=== PATIENT | female | born 1950 | race Caucasian/White ===

== ENCOUNTER 2019-01-26 13:16 | Inpatient (IN) ==
[2019-01-26] MEDS ORDERED: Lytes/Yerba Santa 60 APPL BTL MM PRN (15:37)
[2019-01-26] MEDS ORDERED: MICONAZOLE NITRATE 150 APPL TUBE TP PRN (15:45)
[2019-01-26] MEDS: GABAPENTIN 400 MG CAPSULE PO SCH (16:41)
[2019-01-26] MEDS ORDERED: DOCUSATE SODIUM 100 MG CAPSULE PO SCH (21:00)
[2019-01-26] MEDS ORDERED: GABAPENTIN 400 MG CAPSULE PO SCH (21:00)
[2019-01-26] MEDS: APIXABAN 5 MG TABLET PO SCH (21:54)
[2019-01-27] MEDS: PANTOPRAZOLE SODIUM 20 MG TABLET.DR PO SCH (08:03)
[2019-01-27] MEDS: GABAPENTIN 400 MG CAPSULE PO SCH ×3 (08:03→20:21)
[2019-01-27] MEDS: APIXABAN 5 MG TABLET PO SCH ×2 (08:03→20:20)
[2019-01-27] MEDS: amLODIPine BESYLATE 5 MG TABLET PO SCH (08:04)
[2019-01-27] MEDS: PROCHLORPERAZINE MALEATE 10 MG TABLET PO PRN ×2 (08:13→17:08)
[2019-01-27] MEDS ORDERED: LISINOPRIL 20 MG TABLET PO SCH (09:00)
[2019-01-27] MEDS: oxyCODONE HCL 5 MG TABLET PO PRN ×3 (11:34→20:31)
--- NOTE | 2019-01-27 13:20 | HP ---
Chief Complaint - Chief Complaint Date of Service: 01/26/19 Time of Service: 18:45 Chief Complaint: terminal illness, multiple myeloma, History of Present Illness: Marley ortiz is a 68-year-old female well-known to me who has known mul tiple myeloma with diffuse metastasis. She is on hospice and has been cared for by a son who has taken good care of her but had to go out of town for the weekend. She has another son who came to stay with her but is an alcoholic and is not taking care of her at all. The hospice nurse felt that she was in an unsafe situation and should be admitted to respite care until the responsible son could return home. She is admitted stable and with pain fairly well controlled. She takes a lot of narcotic in order to function. She is sad about her terminal illness and irresponsible son. She has had breast cancer and kidney cancer in the past and she has been cured of both of those. She was treating the myeloma for about 9 months but was getting sicker each time she received chemotherapy and decided to stop it and just let the disease take its course. She has been on hospice for 2 or 3 months now. Medical History (Updated 12/08/18 @ 10:57 by Oliverio Baldwin DO) Hypotension (Acute) Bilateral senile cataracts (Chronic) Acute pulmonary embolism with acute cor pulmonale (Acute) Carpal tunnel syndrome of right wrist (Chronic) Hand pain (Chronic) Multiple myeloma in remission (Suspected) MGUS in remission. Worsening body fluid retention (Chronic) CHF (congestive heart failure) (Chronic) COPD (chronic obstructive pulmonary disease) (Chronic) Hypoxemia (Acute) O2 sat on room air @ 86 % here in the office today. 92% on 1 L NC 02. Multiple myeloma without remission (Acute) C/o of a lot of joint pain. Venous stasis ulcer of both lower extremities without varicose veins (Chronic) Bilateral edema of lower extremity (Chronic) Chemotherapy follow-up examination (Chronic) Thrombocytopenia due to drugs (Acute) Paresthesia of hand, bilateral (Acute) Leg weakness, bilateral (Chronic) Primary cancer of bone marrow (Acute) Chronic pain syndrome (Acute) Bursitis of right shoulder (Acute) Breast cancer Onset Date: ~1994 Right Breast- tx'd w/ radiation & tamoxifen Dermatitis Onset Date: ~03/18/13 Glucose intolerance (impaired glucose tolerance) Onset Date: ~07/19/15 Malignant neoplasm of kidney, except pelvis Onset Date: Unknown Urinary incontinence Onset Date: ~12/20/13 Anemia Onset Date: ~02/08/15 HTN (hypertension) Onset Date: ~03/18/11 DEYSI (obstructive sleep apnea) Onset Date: ~04/14/13 AHI 32, REM AHI 62, lowest O2 sat 72%, [facility] Sleep Lab 03/01/2013 Vitamin D deficiency Onset Date: ~12/19/13 Surgical History: Surgical History (Updated 01/11/18 @ 11:44 by Krysta Devine CMA) History of kidney surgery Onset Date: Unknown Left artery arteriogram w/ embolizatoin History of nephrectomy Onset Date: ~12/31/11 UI; Robotic Heminephrectomy Hx of section Onset Date: ~1974 Hx of cholecystectomy Onset Date: ~06/17/11 UI Hx of colonoscopy Onset Date: ~2007 [facility] Hx of endoscopic retrograde cholangiopancreatography Onset Date: ~05/26/11 [facility] Hx of hysterectomy Onset Date: ~1995 Hx of lumpectomy Onset Date: ~1994 Right Breast CA; Radiation & Tamoxifen Hx of spinal surgery Lumbar Region, 3 herniated disc (small bone) Family History: Family History (Updated 01/11/18 @ 11:49 by Krysta Devine CMA) Son Diabetes Kidney failure Sister Diabetes Mother , in her late 60s CVA (cerebral vascular accident) Colon cancer Father , @ age 89 CHF (congestive heart failure) Brother Diabetes Social History: (Last Reviewed 01/26/19 @ 14:44 by Ann Machado RN) Social History: care home: No Marital status: lives independently: Yes household members: other number of children: 3 current occupational status: retired 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 Highest education level completed: Associate degree: academi Service: No Tobacco: Smoking Status: Never smoker Alcohol: alcohol intake: current Substance Use: substance use type: does not use Dietary Habits: caffeine: Yes Review Of Systems (GEN) - Review of Systems Generalized/Overall Review: Present: Weakness, Malaise, Fatigue, Weight loss EENTM: Present: Ear Discharge Respiratory: Present: Cough, Shortness of Breath Cardiac: Present: No Symptoms Reported Abdominal: Present: No Symptoms Reported Genitourinary: Present: No Symptoms Reported Musculoskeletal: Present: Other - Diffuse bone pain due to widespread bony metastasis Neurological: Present: No Symptoms Reported, Depressed Skin: Present: No Symptoms Reported Endocrine: Present: No Symptoms Reported Immunizations: IMMUNIZATION HX Immunizations Up to Date Yes Allergies/Adverse Reactions: Allergies Allergy/AdvReac Type Severity Reaction Status Date / Time morphine Allergy Severe Shortness Verified 01/26/19 14:44 of Breath codeine Allergy Intermediate Hives Verified 01/26/19 14:44 Home Medications: HOME MEDICATIONS amlodipine 10 mg tablet 5 mg PO DAILY #15 tab 12/27/18 [Last Taken Unknown] Apixaban [Eliquis] 5 mg PO BID 01/26/19 [Last Taken Unknown] Ascorbic Acid [Vitamin C] 500 mg PO DAILY 01/26/19 [Last Taken Unknown] Calcium Carbonate [Calcium] 600 mg PO DAILY 01/26/19 [Last Taken Unknown] Cholecalciferol (Vitamin D3) [Vitamin D3] 2,000 unit PO DAILY 01/26/19 [Last Taken Unknown] Dimethicone/Zinc Oxide [Telma Protect Cream] 1 applic TOPICAL PRN 01/26/19 [Last Taken Unknown] Docusate Sodium 200 mg PO HS 01/26/19 [Last Taken Unknown] Furosemide [Lasix] 40 mg PO DAILY 01/26/19 [Last Taken Unknown] Gabapentin 400 mg PO BID 01/26/19 [Last Taken Unknown] Gabapentin 400 mg PO HS 01/26/19 [Last Taken Unknown] Levofloxacin [Levaquin] 500 mg PO DAILY 01/26/19 [Last Taken Unknown] Lisinopril [Zestril] 20 mg PO DAILY 01/26/19 [Last Taken Unknown] Omeprazole [Prilosec] 20 mg PO DAILY 01/26/19 [Last Taken Unknown] Ondansetron HCl [Zofran] 8 mg PO TID PRN 01/26/19 [Last Taken Unknown] Potassium Chloride [K-Dur] 10 meq PO DAILY 01/26/19 [Last Taken Unknown] Prochlorperazine Maleate [Compazine] 10 mg PO Q6H PRN 01/26/19 [Last Taken Unknown] Saliva Stimulant Agents Comb.3 [Biotene Moisturizing Mouth] 44.3 ml MM PRN 01/09 02/27 [Last Taken Unknown] oxyCODONE HCL [Oxycodone HCl] 10 mg PO Q2H PRN 01/26/19 [Last Taken Unknown] oxyCODONE HCL [Oxycontin] 20 mg PO QAM 01/26/19 [Last Taken Unknown] oxyCODONE HCL [Oxycontin] 40 mg PO HS 01/26/19 [Last Taken Unknown] Exam - Exam Vital Signs: Vital Signs - Last Taken Temp 37.2 C 01/26/19 13:28 Pulse 70 01/27/19 08:04 Resp 18 01/26/19 13:28 BP 111/49 01/27/19 08:04 Pulse Ox 95 01/27/19 10:47 Constitutional: Present: Alert, Oriented x3, Cooperative, Well developed, Well nourished, Mild distress ENT Exam: Present: normal ENT inspection, hearing grossly normal, pharynx normal, TMs normal Eye Exam: bilateral eye: normal inspection, PERRL, EOMI Neck: Present: non-tender, limited range of motion Back Exam: Present: vertebral tenderness Breasts: Present: Exam deferred Respiratory: Present: chest non-tender, lungs clear, normal breath sounds, no respiratory distress, no accessory muscle use Cardiovascular/Chest: Present: normal peripheral pulses, regular rate, rhythm, no chest tenderness, no gallop, no JVD, no murmur, no rub, edema Peripheral Pulses: carotid (R): 2+, carotid (L): 2+, radial (R): 2+, radial (L): 2+ Abdomen: Present: Normal bowel sounds /Rectal: Present: Exam deferred Extremity: Present: normal capillary refill, lower extremity edema, leg pain Lymphatic: Present: no adenopathy Neurologic: Present: 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 She can continue the medications as reconciled. She is not to have any lab work, IVs, or imaging studies. Vital signs are not necessary and should be kept to a minimum. She is a DO NOT RESUSCITATE patient. Further adjustments in her pain management can be made if deemed necessary. - Assessment/Plan (1) Multiple myeloma without remission Problem: Acute (2) Chronic pain syndrome Problem: Acute
--- NOTE | 2019-01-27 13:25 | PN ---
Subjective - Date and Time Seen Date: 01/27/19 Time: 13:20 Subjective Narrative: And is reasonably comfortable. She does have some discomfort but no severe pain. She has eaten fair today. She is sitting up on the edge of the bed. She has no complaints or requests. Objective - Review of Systems Generalized/Overall Review: Reports: Weakness, Malaise, Fatigue, Weight loss EENTM: Reports: No Symptoms Reported Respiratory: Reports: Cough, Shortness of Breath Cardiac: Reports: No Symptoms Reported Abdominal: Reports: No Symptoms Reported Genitourinary Symptoms: Reports: No Symptoms Reported Musculoskeletal Complaints: Reports: Other - Diffuse bone pain Neurological: Reports: No Symptoms Reported, Depressed Skin: Reports: No Symptoms Reported Endocrine: Reports: No Symptoms Reported - Vitals Vitals: Last Vital Signs Temp 37.2 C 01/26/19 13:28 Pulse 70 01/27/19 08:04 Resp 18 01/26/19 13:28 BP 111/49 01/27/19 08:04 Pulse Ox 95 01/27/19 10:47 - Exam Constitutional: Present: Alert, Oriented x3, Cooperative, Well developed, Well nourished, Mild distress ENT Exam: Present: normal ENT inspection, hearing grossly normal Neck: Present: non-tender, limited range of motion Breasts: Present: Exam deferred Respiratory: Present: chest non-tender, lungs clear, normal breath sounds Cardiovascular/Chest: Present: normal peripheral pulses, regular rate, rhythm, edema Abdomen: Present: Normal bowel sounds, soft, nontender, nondistended /Rectal: Present: Exam deferred Extremity: Present: normal range of motion, normal capillary refill, lower extremity edema Skin Exam: Present: pallor Lymphatic: Present: no adenopathy Neurologic: Present: 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 Adjust pain medication as necessary. - Problems/Diagnosis (1) Multiple myeloma without remission Problem: Acute (2) Chronic pain syndrome Problem: Acute
[2019-01-27] MEDS: DOCUSATE SODIUM 100 MG CAPSULE PO SCH (20:20)
[2019-01-27] MEDS: LISINOPRIL 20 MG TABLET PO SCH (20:22)
[2019-01-28] MEDS: oxyCODONE HCL 5 MG TABLET PO PRN ×5 (05:19→17:14)
[2019-01-28] MEDS: PANTOPRAZOLE SODIUM 20 MG TABLET.DR PO SCH (08:33)
[2019-01-28] MEDS: GABAPENTIN 400 MG CAPSULE PO SCH ×4 (08:33→22:01)
[2019-01-28] MEDS: APIXABAN 5 MG TABLET PO SCH ×2 (08:33→21:55)
[2019-01-28] MEDS: amLODIPine BESYLATE 5 MG TABLET PO SCH (08:34)
[2019-01-28] MEDS: LISINOPRIL 20 MG TABLET PO SCH (08:34)
[2019-01-28] MEDS: DOCUSATE SODIUM 100 MG CAPSULE PO SCH ×2 (08:34→21:54)
[2019-01-28] MEDS: PROCHLORPERAZINE MALEATE 10 MG TABLET PO PRN (13:59)
[2019-01-28] MEDS: ONDANSETRON HCL 8 MG TABLET PO PRN (17:14)
[2019-01-29] MEDS: oxyCODONE HCL 5 MG TABLET PO PRN ×5 (02:54→16:01)
[2019-01-29] MEDS: PANTOPRAZOLE SODIUM 20 MG TABLET.DR PO SCH (07:19)
[2019-01-29] MEDS: DOCUSATE SODIUM 100 MG CAPSULE PO SCH ×2 (08:47→21:34)
[2019-01-29] MEDS: LISINOPRIL 20 MG TABLET PO SCH (08:47)
[2019-01-29] MEDS: APIXABAN 5 MG TABLET PO SCH ×2 (08:47→21:34)
[2019-01-29] MEDS: amLODIPine BESYLATE 5 MG TABLET PO SCH (08:47)
[2019-01-29] MEDS: GABAPENTIN 400 MG CAPSULE PO SCH ×4 (08:49→21:34)
[2019-01-29] MEDS: PROCHLORPERAZINE MALEATE 10 MG TABLET PO PRN (12:51)
[2019-01-29] MEDS: ONDANSETRON HCL 8 MG TABLET PO PRN (13:37)
[2019-01-29] MEDS ORDERED: TRIAMCINOLONE ACETONIDE 15 APPL TUBE TP PRN (17:31)
[2019-01-30] MEDS: oxyCODONE HCL 5 MG TABLET PO PRN ×4 (03:44→17:03)
[2019-01-30] MEDS: PANTOPRAZOLE SODIUM 20 MG TABLET.DR PO SCH (06:44)
[2019-01-30] MEDS: ONDANSETRON HCL 8 MG TABLET PO PRN ×2 (06:44→14:18)
[2019-01-30] MEDS: LISINOPRIL 20 MG TABLET PO SCH (08:42)
[2019-01-30] MEDS: GABAPENTIN 400 MG CAPSULE PO SCH ×4 (08:43→20:53)
[2019-01-30] MEDS: amLODIPine BESYLATE 5 MG TABLET PO SCH (08:43)
[2019-01-30] MEDS: DOCUSATE SODIUM 100 MG CAPSULE PO SCH ×2 (08:43→20:52)
[2019-01-30] MEDS: APIXABAN 5 MG TABLET PO SCH ×2 (08:43→20:52)
[2019-01-30] MEDS: PROCHLORPERAZINE MALEATE 10 MG TABLET PO PRN (12:17)
--- NOTE | 2019-01-30 18:58 | PN ---
Subjective - Date and Time Seen Date: 01/30/19 Time: 08:35 Subjective Narrative: Marley has had an uneventful weekend. Her pain is been fairly well managed. She waits a little too long to ask for pain medication that is her nature. She has no complaints or requests. She is resting well. She anticipates that her son will return tomorrow or the next day at which time she will probably go home. She is alert and conversant with me this morning. There is no confusion. We are not checking her vital signs. There is no new lab or imaging studies to report as were not doing those either. The comfort measures that are in place seem to be effective and adequate. Objective - Review of Systems Generalized/Overall Review: Reports: Weakness, Malaise EENTM: Reports: No Symptoms Reported Respiratory: Reports: No Symptoms Reported Cardiac: Reports: No Symptoms Reported Abdominal: Reports: No Symptoms Reported, Constipation Musculoskeletal Complaints: Reports: Joint Pain, Back Pain, Muscle Pain, Other - Diffuse bone pain Neurological: Reports: Numbness, Other - Radicular pain down over the shoulders and upper arms Skin: Reports: No Symptoms Reported Endocrine: Reports: No Symptoms Reported - Vitals Vitals: Last Vital Signs Temp 37.2 C 01/26/19 13:28 Pulse 71 01/30/19 08:43 Resp 18 01/26/19 13:28 BP 122/61 01/30/19 08:43 Pulse Ox 95 01/27/19 10:47 - Exam Constitutional: Present: Alert, Oriented x3, Cooperative, Well developed, Well nourished, Mild distress, Elderly ENT Exam: Present: normal ENT inspection, hearing grossly normal, pharynx normal, TMs normal Neck: Present: non-tender, normal inspection, trachea midline, limited range of motion Respiratory: Present: chest non-tender, lungs clear, normal breath sounds, no respiratory distress, no accessory muscle use Cardiovascular/Chest: Present: normal peripheral pulses, regular rate, rhythm, no chest tenderness, no edema, no gallop, no JVD, no murmur, no rub Abdomen: Present: Normal bowel sounds, soft, nontender, nondistended, no rebound tenderness, no hepatospenomegaly /Rectal: Present: Exam deferred Extremity: Present: leg pain Skin Exam: Present: normal color, warm/dry, no cyanosis, cool/dry Lymphatic: Present: no adenopathy Neurologic: 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 Continue comfort measures only. - Problems/Diagnosis (1) Multiple myeloma without remission Problem: Acute (2) Chronic pain syndrome Problem: Acute
[2019-01-31] MEDS: oxyCODONE HCL 5 MG TABLET PO PRN ×3 (00:02→11:20)
[2019-01-31] MEDS: PANTOPRAZOLE SODIUM 20 MG TABLET.DR PO SCH (07:30)
[2019-01-31] MEDS: DOCUSATE SODIUM 100 MG CAPSULE PO SCH (08:22)
[2019-01-31] MEDS: APIXABAN 5 MG TABLET PO SCH (08:22)
[2019-01-31] MEDS: GABAPENTIN 400 MG CAPSULE PO SCH (08:23)
[2019-01-31] MEDS: LISINOPRIL 20 MG TABLET PO SCH (08:28)
[2019-01-31] MEDS: amLODIPine BESYLATE 5 MG TABLET PO SCH (08:29)
--- NOTE | 2019-01-31 12:47 | DS ---
(1) Multiple myeloma without remission Problem: Acute (2) Chronic pain syndrome Problem: Acute Description of Stay: Marley is a 68-year-old female well-known to me who has advanced multiple myeloma and a lot of bone pain. She is cared for at home by her older's son who is very responsible and caring for her. He had to go out of town for a few days and his younger brother came to stay with Marley. Unfortunately the younger brother is irresponsible and an alcoholic and was of no value and helping care for Marley. Her hospice nurse identified this and on and the hospice nurse agreed that she should be admitted for respite care until the older son could resume her care. He came back late last night and is cleaning the house up and getting food in the house before taking on a home. She is to go home this afternoon. [facility] this will be resumed once there. She is doing fairly well with her pain management with current opioids. She is alert and conversant and is not in any severe pain at this time. She has not had any lab, x-rays, or vital signs done since being here since she was on comfort measures only. Procedures Performed: none Discharge Location: Home Disposition: Hospice Home Home Health Agency: [facility] Condition: Stable Face to Face Encounter completed per CMS Guidelines: No Discharge Activity: Activity as tolerated Discharge Diet: General/regular food Referrals: Oliverio Baldwin DO [Primary Care Provider] - Complete Home Medications List: Complete Home Medication List: amlodipine 10 mg tablet 5 mg PO DAILY #15 tab 12/27/18 Apixaban [Eliquis] 5 mg PO BID 01/26/19 Ascorbic Acid [Vitamin C] 500 mg PO DAILY 01/26/19 Calcium Carbonate [Calcium] 600 mg PO DAILY 01/26/19 Cholecalciferol (Vitamin D3) [Vitamin D3] 2,000 unit PO DAILY 01/26/19 Dimethicone/Zinc Oxide [Telma Protect Cream] 1 applic TOPICAL PRN 01/26/19 Docusate Sodium 200 mg PO HS 01/26/19 Furosemide [Lasix] 40 mg PO DAILY 01/26/19 Gabapentin 400 mg PO BID 01/26/19 Gabapentin 400 mg PO HS 01/26/19 Levofloxacin [Levaquin] 500 mg PO DAILY 01/26/19 Lisinopril [Zestril] 20 mg PO DAILY 01/26/19 Omeprazole [Prilosec] 20 mg PO DAILY 01/26/19 Ondansetron HCl [Zofran] 8 mg PO TID PRN 01/26/19 Potassium Chloride [K-Dur] 10 meq PO DAILY 01/26/19 Prochlorperazine Maleate [Compazine] 10 mg PO Q6H PRN 01/26/19 Saliva Stimulant Agents Comb.3 [Biotene Moisturizing Mouth] 44.3 ml MM PRN 0 01/26/19 oxyCODONE HCL [Oxycodone HCl] 10 mg PO Q2H PRN 01/26/19 oxyCODONE HCL [Oxycontin] 20 mg PO QAM 01/26/19 oxyCODONE HCL [Oxycontin] 40 mg PO HS 01/26/19 Triamcinolone Acetonide [Kenalog 0.1% Ointment] 1 appl TOPICAL PRN PRN tube 01/31/19
[2019-01-31 13:17] VITALS: BP 113/65
== END 2019-01-31 13:42 | disposition hospice, home (50) | DRG 951 ==
LOC: MS 13:16
PROVIDERS: ADMIT Family Medicine; ATTEND Family Medicine